=== PATIENT | male | born 2000 | race African-American/Black ===

== ENCOUNTER 2022-12-02 16:03 | Emergency (ER) | payer MEDICAID, OTHER ==
[~2022-12-02] VITALS: Ht 177.8 cm; Wt 73.0 kg
[2022-12-02] MEDS ORDERED: TETANUS, DIPHTHERIA, PERTUSSIS VAC/PF 0.5ML (>10YR OLD) IM ONE (17:15)
[2022-12-02] MEDS ORDERED: IBUP-2029 MT (17:36)
[2022-12-02 18:17] VITALS: BP 117/85
== END 2022-12-02 18:48 | disposition home or self-care (01) ==
LOC: ER 16:03
DX: S62.92XA Unspecified fracture of left hand, initial encounter for closed fracture (principal); W18.39XA Other fall on same level, initial encounter; Y93.89 Activity, other specified; Y92.89 Other specified places as the place of occurrence of the external cause; Y99.8 Other external cause status
CPT/HCPCS: 29125; 73130; 90471; 90715; 99283; Z7610

== ENCOUNTER 2024-01-31 10:04 | Emergency (ER) | payer MEDICAID, OTHER ==
[~2024-01-31] VITALS: Ht 180.3 cm; Wt 63.5 kg
[~2024-01-31 10:04] MED LIST: IBUP-2029 MT
[2024-01-31 10:16] VITALS: O2SAT 97
[2024-01-31] MEDS ORDERED: FLUT9.9S BOTHNSTRLS (10:46)
[2024-01-31] MEDS ORDERED: D-ME473S50 PO (10:46)
[2024-01-31 12:22] VITALS: BP 135/93; PULSE 86; RESP 18; TEMP 98.6
== END 2024-01-31 12:23 | disposition home or self-care (01) ==
LOC: ER 10:25
DX: J30.9 Allergic rhinitis, unspecified (principal)
CPT/HCPCS: 71045; 99283